=== PATIENT | female | born 1975 | race Caucasian/White ===

== ENCOUNTER → 2021-01-01 12:43 | Outpatient (CLI) | payer OTHER, SELFPAY ==
--- NOTE | ~2021-01-01 | MR_ITS ---
EXAMINATION: MR hip RT w con DATE: 01/01/2021 14:30 INDICATION: Chronic right hip and sacroiliac joint pain. TECHNIQUE: Magnetic resonance (MR) arthrogram of the right hip was performed following intra-articula r gadolinium contrast injection and without intravenous contrast. Details of the hip joint injection have been dictated separately. Sequences included small field of view of the right hip with axial and sagittal T1-weighted FS SE and T2-weighted FS FSE and coronal T1-weighted SE and T2-weighted FS FSE . Additional T1-weighted FGRE images in a radial pattern oriented orthogonal to the acetabular rim we re obtained for evaluation of the labrum. COMPARISON: Right hip MR dated 09/03/2019 FINDINGS: Bones/labrum/cartilage: Again seen is a partially visualized lumbar levocurvature. Moderate lower lumbar spondylosis. Bone is land at the right femoral head. Marrow signal is otherwise normal. No fracture, avascular necrosis o r pathologic marrow replacing process. Chondral labral delamination with linear contrast-filled tear extending partially across the base of the 10:00-11:00 position of the posterior superior right aceta bular labrum. There is partial thickness cartilage loss and fissuring without degenerative subchondra l changes along the anterosuperior glenoid labrum. Less well-defined mild increased labral signal con sistent with degenerative tearing of the adjacent anterosuperior labrum. There is mild subarticular e jazzy at the contralateral anterosuperior left acetabulum suggesting osteoarthritis with similar patte rn of chondromalacia. Bilateral sacroiliac joints are unremarkable. Soft tissues: Normal and symmetric muscle bulk and signal in the pelvis and visualized proximal thighs. The bilater al iliopsoas, gluteal and proximal hamstring tendons are normal. T2 hyperintense bilateral adnexal cy sts, the largest on the left measuring 2.2 cm. Limited evaluation of visceral organs of the pelvis is otherwise unremarkable. No pathologically enlarged pelvic/inguinal lymphadenopathy. Trace amount of likely physiologic free fluid in the pelvis. IMPRESSION: 1. Mild right hip osteoarthritis with chondral labral delamination and partial thickness tear at the posterior superior labrum and more irregular degeneration at the anterosuperior labrum. 2. Lumbar levocurvature with moderate lower lumbar spondylosis. Reviewed, dictated and finalized at location A.
--- NOTE | ~2021-01-01 | XR_ITS ---
EXAMINATION: XR fl inj hip RT for MR/CT DATE: 01/01/2021 13:35 INDICATION: Right hip pain. TECHNIQUE: A time-out was performed to verify the patient's name, date of , and procedure to b e performed. The procedure including the risks, benefits, and alternatives was discussed with the pat ient. Risks discussed included bleeding and infection. The patient understood the risks and agreed to proceed. The skin overlying the right hip joint was prepped and draped in usual sterile fashion. An esthetic was administered with 1% lidocaine subcutaneously. A 22 G needle was advanced under fluoros copic guidance into the joint. Subsequently, injectate consisting of 9 mL of 1:200 Multihance, 1:4 1 % lidocaine, and 1:4 Omnipaque 240 was instilled. The needle was removed and the entry site was gabe nadine and dressed. There were no immediate complications. Fluoroscopy exposure time was 0.0 minutes. T he total number of images was 2. FINDINGS: Real-time fluoroscopy demonstrates the needle and contrast in the right hip joint. IMPRESSION: 1. Successful right hip joint injection of contrast for subsequent MR arthrography. Reviewed, dictated and finalized at location B. IMPRESSION: 1. Successful right hip joint injection of contrast for subsequent MR arthrogra phy.
== END ==
PROVIDERS: Visit Provider Internal Medicine
DX: M53.3 Sacrococcygeal disorders, not elsewhere classified (principal); G89.29 Other chronic pain; M16.11 Unilateral primary osteoarthritis, right hip
CPT/HCPCS: 20610; 73722; 77002; A9577; Q9966

== ENCOUNTER 2021-10-04 16:37 | Emergency (ER) | payer OTHER, SELFPAY ==
[2021-10-04 16:55] VITALS: BP 136/82; PULSE 95; RESP 18; TEMP 37; O2SAT 100
--- NOTE | 2021-10-04 17:24 | ED.FEMALEGU ---
HPI - Female Genitourinary General Chief complaint: Urogenital-Female Stated complaint: POSS UTI Source: patient History of Present Illness HPI Narrative: This is a 46-year-old female who presented to urgent care with complaints of hematuria, urgency frequency, bloating and dysuria. Patient notes that she has a history of urinary tract infection. She notes that if she does not urinate after having sexual intercourse she is prone to have a urinary tract infection. Patient noted that she took ibrd-qsm-[id number] cystex which relieved her symptoms. Patient notes that she did not take her dose of Cystex this morning and all her symptoms returned. Patient UA negative for UA I will treat office symptoms along. Patient denies any STDs Related Data Allergies Allergy/AdvReac Type Severity Reaction Status Date / Time Penicillins Allergy Mild Hives Verified 10/04/21 17:16 sulfamethizole Allergy Mild Hives Verified 10/04/21 17:16 Review of Systems Review of Systems: A 14 organ system Review of Systems was performed and pertinent positives included in the HPI, otherwise remaining ROS is negative. [facility] Family History Family History Father Hypertension Grandparent Family history of cardiovascular disease Family history of lung cancer Family history of malignant neoplasm of urinary bladder Other Family history of malignant neoplasm Social History Social History Smoking status: Former smoker Smoking end date: 09/15/14 Alcohol intake: current Exam Narrative: GENERAL: This is a well-nourished, well-developed patient, in no apparent distress. HEAD: normocephalic, atraumatic. EYES: PERRL. Sclera clear/white. Vision is grossly intact. EARS: External ears normal, auditory canals clear and without drainage, TMs normal without perforation. Hearing grossly intact. NOSE: External nose normal with no obvious nasal discharge, nares without redness, no rhinorrhea. THROAT: Mucous membranes moist, posterior pharynx clear. NECK: Neck supple, non-tender without lymphadenopathy, masses or thyromegaly. CARDIOVASCULAR: Regular rate and rhythm without murmurs, gallops, or rubs. RESPIRATORY: Clear to auscultation. Breath sounds equal bilaterally. No wheezes, rales, or rhonchi. GASTROINTESTINAL: Abdomen soft, non-tender, nondistended. Bowel sounds are active. No hepato-splenomegaly, or palpable masses. No guarding. SKIN: warm, intact with no suspicious lesions or rash, good texture and turgor. NEURO: awake, alert, and oriented to person, place and time. There were no obvious focal neurologic abnormalities. Steady gait EXTREMITIES: Normal range of motion. No edema. No calf tenderness. Negative Homans sign bilaterally. BACK: Nontender without deformity or crepitance. No flank tenderness. Course Course Emergency Course: Patient will be treated for urinary tract infection with Macrobid x5 days based off symptoms and history. Urine culture pending Level of Care: Express Care Visit Vital Signs Vital signs: Vital Signs Temperature 98.6 F 10/04/21 16:55 Pulse Rate 95 10/04/21 16:55 Respiratory Rate 18 10/04/21 16:55 Blood Pressure 136/82 10/04/21 16:55 Pulse Oximetry 100 10/04/21 16:55 Temperature 98.6 F 10/04/21 16:55 Pulse Rate 95 10/04/21 16:55 Respiratory Rate 18 10/04/21 16:55 Blood Pressure 136/82 10/04/21 16:55 Pulse Oximetry 100 10/04/21 16:55 MDM - Female Genitourinary Differential Diagnosis Differential diagnosis: Likely urinary tract infection, bacterial vaginosis and vaginitis Lab Data Labs: Urine Glucose Negative Reference Range: Negative Urine Bilirubin Negative Reference Range: Negative Urine Ketone Negative
== END 2021-10-04 17:30 | disposition home or self-care (01) ==
PROVIDERS: Emergency Provider Nurse Practitioner; PCP Family Medicine
DX: N39.0 Urinary tract infection, site not specified (principal); Z87.891 Personal history of nicotine dependence
CPT/HCPCS: 81003; 87086; 87088; 99213; G0463

== ENCOUNTER 2023-03-28 19:20 | Emergency (ER) | payer OTHER, SELFPAY ==
[2023-03-28 19:36] VITALS: BP 132/84; PULSE 88; RESP 18; TEMP 36.9; O2SAT 100
--- NOTE | 2023-03-28 19:54 | ED.LOWEXIN ---
HPI - Extremity Injury (Lower) General Chief Complaint: Extremity Injury, Lower Stated Complaint: Lt Knee Leg Swelling Due To Fall Time Seen by Provider: 03/28/23 19:39 Source: patient, family (Significant other) and RN notes reviewed Mode of arrival: ambulatory Limitations: no limitations History of Present Illness HPI Narrative: Patient presents today complaining of left knee pain. She fell outside yesterday well taking a walk. She was able to finish her 3 mi walk before going home. She does report some swelling yesterday, but feels today it is difficult to bend her knee. Reports not much pain and currently rates it 09/24. She has been applying ice and taking ibuprofen with some relief. Denies numbness or tingling. She is up-to-date on her tetanus vaccine Related Data Home Medications Medication Instructions Recorded Confirmed levonorgestrel 21 mcg/24 hours (8 See Rx Instructions .Route .COMPLEX 10/04/21 03/28/23 yrs) 52 mg intrauterine device (Mirena) Allergies Allergy/AdvReac Type Severity Reaction Status Date / Time Penicillins Allergy Mild Hives Verified 03/28/23 19:36 sulfamethizole Allergy Mild Hives Verified 03/28/23 19:36 Review of Systems Review of Systems: CONSTITUTIONAL: Denies body aches, fever, chills, or sweats. EYES: Denies visual changes, redness, or discharge. ENT: Denies rhinorrhea, congestion, sore throat, or otalgia. CARDIOVASCULAR: Denies chest pain, palpitations, or edema. RESPIRATORY: Denies cough or dyspnea. GASTROINTESTINAL: Denies abdominal pain, nausea, vomiting, or diarrhea. GENITOURINARY: Denies dysuria or hematuria. SKIN: Denies rash, itching, or wounds. MUSCULOSKELETAL: Denies back pain. + left knee pain NEUROLOGIC: Denies headache, numbness, tingling, or weakness. PSYCH: Denies depression or anxiety. [facility] Family History Family History Father Hypertension Grandparent Family history of cardiovascular disease Family history of lung cancer Family history of malignant neoplasm of urinary bladder Other Family history of malignant neoplasm Social History Social History Smoking status: Former smoker Smoking end date: 09/15/14 Alcohol intake: current Comments At time of signature, I have reviewed and agree with nursing past medical, surgical, social and family history unless otherwise noted. Please see nursing chart for further information. There is no relevant family history pertinent to the presenting complaint Exam Narrative: GENERAL: Well-appearing, well-nourished, and in no acute distress. HEAD: Normocephalic, atraumatic. EYES: EOMI. No redness or drainage. Conjunctivae normal. ENT: Mucous membranes pink and moist. NECK: Normal AROM. CHEST: No respiratory distress. EXTREMITIES: Left knee: Scattered abrasions to the patella. The patella is nontender to palpation. No abnormal movement of the patella. No tenderness to the patellar tendon. No tenderness to the medial or lateral joint lines of the knee. No tenderness posteriorly. No bony tenderness of the lower leg. Patient does have some mild edema of the lower leg, ankle, and foot. Distal sensation intact. Capillary refill normal. Pedal pulse normal. Full range of motion of the knee. No pain with flexion, extension, internal or external rotation. No effusion of the knee palpated. SKIN: Warm, dry, no rash. Capillary refill normal. Normal skin turgor. NEURO: No focal deficits. Alert and oriented x3. Gait steady. PSYCH: Normal affect. No signs of depression or anxiety. Course Course Level of Care: Express Care Visit Vital Signs Vital signs: Vital Signs Temperature 98.4 F 03/28/23 19:36 Pulse Rate 88 03/28/23 19:36 Respiratory Rate 18 03/28/23 19:36 Blood Pressure 132/84 03/28/23 19:36 Pulse Oximetry 100 03/28/23 19:36 Oxygen Delivery
== END 2023-03-28 20:09 | disposition home or self-care (01) ==
PROVIDERS: Emergency Provider Nurse Practitioner; PCP Family Medicine
DX: S80.02XA Contusion of left knee, initial encounter (principal); W19.XXXA Unspecified fall, initial encounter; Z87.891 Personal history of nicotine dependence
CPT/HCPCS: 99212; G0463

== ENCOUNTER 2024-01-06 13:50 | Outpatient (CLI) | payer OTHER, SELFPAY ==
[2024-01-06 18:48] LABS: Basophils Absolute Auto 0.1 K/mm3 (0.0-0.1); Basophils Percent Auto 0.7 % (0.2-1.2); Eosinophils Absolute Auto 0.3 K/mm3 (0-0.3); Eosinophils Percent Auto 2.5 % (0-4.4); Hematocrit 43.6 % (37.0-47.0); Hemoglobin 13.3 g/dL (12.0-15.0); Immature Granulocyte Absolute 0.05 K/mm3 (0.00-0.031); Immature Granulocyte Percent A 0.4 % (0-0.5); Lymphocytes Absolute Auto 2.66 K/mm3 (0.9-3.2); Lymphocytes Percent Auto 20.8 % (18.3-44.2); Mean Corpuscular HGB Conc 30.5 g/dl (32-36); Mean Corpuscular Hemoglobin 31.1 pg (26-34); Mean Corpuscular Volume 101.9 fl (80-100); Mean Platelet Volume 10.8 fl (7.4-10.4); Monocytes Absolute Auto 0.9 K/mm3 (0.1-0.6); Monocytes Percent Auto 7.1 % (2.6-8.5); Neutrophils Absolute Auto 8.7 K/mm3 (1.3-6.7); Neutrophils Percent Auto 68.5 % (45.5-73.1); Nucleated Red Blood Cells Perc 0.5 % (0.0-0.2); Platelet Count Result 211 k/mm3 (150-375); Red Blood Count 4.28 M/mm3 (4.2-5.4); Red Cell Distribution Width 13.5 % (11.5-14.5); White Blood Count 12.8 K/mm3 (4.5-10.0)
[2024-01-06 19:15] LABS: Alanine Aminotransferase 17 U/L (6-35); Alkaline Phosphatase 54 U/L (38-126); Anion Gap 6 mmol/L (4-12); Aspartate Amino Transferase 35 U/L (14-36); Bilirubin,Total 0.7 mg/dL (0.2-1.3); Blood Urea Nitrogen 15 mg/dL (7-17); Calcium 10.3 mg/dL (8.4-10.2); Carbon Dioxide 28 mmol/L (22-30); Chloride 106 mmol/L (98-107); Estimated Glomerular Filt Rate > 60; Glucose 93 mg/dL (65-110); Potassium 4.6 mmol/L (3.4-5.0); Sodium 140 mmol/L (137-145)
[2024-01-06 19:58] LABS: Vitamin D 25 Hydroxy 46.5 ng/mL
[2024-01-07 02:53] LABS: Albumin Level 4.3 g/dL (3.5-5.1)
[2024-01-07 03:25] LABS: Thyroid Stimulating Hormone 0.754 uIU/mL (0.465-4.680)
== END 2024-01-06 13:51 | disposition home or self-care (01) ==
LOC: ANHGOSHLAB 13:51
PROVIDERS: PCP Nurse Practitioner Family; Visit Provider Nurse Practitioner Family
DX: F41.9 Anxiety disorder, unspecified (principal); F32.9 Major depressive disorder, single episode, unspecified; L65.9 Nonscarring hair loss, unspecified; E55.9 Vitamin D deficiency, unspecified; Z00.00 Encounter for general adult medical examination without abnormal findings
CPT/HCPCS: 36415; 80053; 82306; 84443; 85025

== ENCOUNTER 2024-01-06 13:58 | Outpatient (CLI) | payer OTHER, SELFPAY ==
--- NOTE | ~2024-01-06 | XR_ITS ---
XR knee LT 3V 01/06/2024 14:14 Indication: Left knee pain Procedure: 3 views left knee Comparison: No prior studies for comparison. Findings: No fracture, subluxation or dislocation. No significant soft tissue abnormality. No foreign bodies. Impression: 1: No significant bone or joint abnormality. Reviewed, dictated and finalized at location B. Impression: 1: No significant bone or joint abnormality.
== END 2024-01-06 13:59 ==
PROVIDERS: PCP Nurse Practitioner Family; Visit Provider Nurse Practitioner Family
DX: S80.02XA Contusion of left knee, initial encounter (principal); X58.XXXA Exposure to other specified factors, initial encounter
CPT/HCPCS: 73562

== ENCOUNTER 2024-02-17 06:46 | Day surgery (SDC) | payer OTHER, SELFPAY ==
[2023-12-19 07:23] VITALS: BMI 29.0
[2024-01-30 10:06] VITALS: BMI 28.1
[2024-02-17 07:41] VITALS: BP 117/73; PULSE 74; RESP 16; TEMP 37.3; O2SAT 100
[2024-02-17] MEDS: LACTATED RINGERS 1,000 ML 150 ML IV CONT (07:49)
--- NOTE | 2024-02-17 07:54 | PM.HPGS ---
History of Present Illness History of Present Illness Consent: Risks, benefits, and alternatives have been discussed and questions answered. Patient agrees to proceed with procedure. Chief complaint: Screening for neoplasm of colon Narrative: Arina Alvarez is a 48 year old female referred for colon cancer screening. Review of Systems Review of Systems: All systems reviewed & are unremarkable except as noted in HPI and below PMFSH Family History Family History Father Hypertension Grandparent Family history of cardiovascular disease Family history of lung cancer Family history of malignant neoplasm of urinary bladder Other Family history of malignant neoplasm Social History Social History Smoking status: Former smoker Smoking end date: 09/15/14 Alcohol intake: current Substance use: never Substance use type: does not use Living arrangements: alone Spiritual care concerns: No Meds Home Medications and Allergies Home Medications Medication Instructions Recorded Confirmed Type levonorgestrel 21 mcg/24 hr (up to See Rx Instructions .Route .COMPLEX 10/04/21 02/17/24 History 8 years) 52 mg intrauterine device (Mirena) Allergies Allergy/AdvReac Type Severity Reaction Status Date / Time Penicillins Allergy Mild Hives Verified 02/17/24 07:41 sulfamethizole Allergy Mild Hives Verified 02/17/24 07:41 Vital Signs Vital Signs - 24 hr 02/17/24 07:41 Temperature 37.3 C Pulse Rate 74 Respiratory Rate 16 Blood Pressure 117/73 Pulse Oximetry 100 Oxygen Delivery Room Air Exam Resp: Auscultation: clear to auscultation bilaterally Cardio: Rate: regular rate Rhythm: regular rhythm GI: GI Palp: Yes Soft to palpation and No Tenderness to palpation present (GI) Assessment and Plan Assessment and plan (1) Colon cancer screening: Code(s): Z12.11 - Encounter for screening for malignant neoplasm of colon Status: Acute Assessment and Plan: Colonoscopy with possible biopsy or polypectomy or cautery or injection of substances.
--- NOTE | 2024-02-17 08:27 | P.PNAN_ITS ---
Anes - Initial Pre Proc Eval Procedure: Operation Date: 02/17/24 09:00 Proposed Procedures p Screening Colonoscopy - Guille Mondragon MD Date/Time: 02/17/24 08:27 Surgeon: Guille Mondragon MD Pre Op Diagnosis: Screening for neoplasm of colon Patient Data Age: 48 Gender: F Height: 1.7 m Weight: 83.3 kg Last Vital Signs Temp 37.3 C 02/17/24 07:41 Pulse 74 02/17/24 07:41 Resp 16 02/17/24 07:41 BP 117/73 02/17/24 07:41 Pulse Ox 100 02/17/24 07:41 O2 Del Method Room Air 02/17/24 07:41 Allergies Allergy/AdvReac Type Severity Reaction Status Date / Time Penicillins Allergy Mild Hives Verified 02/17/24 07:41 sulfamethizole Allergy Mild Hives Verified 02/17/24 07:41 Home Medications Medication Instructions Recorded Confirmed Type levonorgestrel 21 mcg/24 hr (up to See Rx Instructions .Route .COMPLEX 10/04/21 02/17/24 History 8 years) 52 mg intrauterine device (Mirena) Patient hx anesthesia problems: none Family hx anesthesia problems: post op nausea/vomiting Results Review: All pre-operative results and documents have been reviewed as part of the pre- operative evaluation. [facility] Family History Family History Father Hypertension Grandparent Family history of cardiovascular disease Family history of lung cancer Family history of malignant neoplasm of urinary bladder Other Family history of malignant neoplasm Social History Social History Smoking status: Former smoker Smoking end date: 09/15/14 Alcohol intake: current Substance use: never Substance use type: does not use Living arrangements: alone Spiritual care concerns: No Anes - Eval Final PreProcedure Day of Procedure 02/17/24 08:27 Patient weight: overweight Heart: regular rate and rhythm Lungs: clear to auscultation Airway: Mallampati scale class II Neurological: alert and oriented Last oral intake: >/= 8 hours ASA classification: II Emergent: no Anesthetic plan: proceed Anesthesia type and monitoring: general GIVS and standard monitoring Results Review: All pre-operative results and documents have been reviewed as part of the pre- operative evaluation. Informed Consent: The patient's anesthetic plan and its attendant risks and benefits were discussed with the patient/family/POA. Questions were solicited and answers provided to the satisfaction of the patient/family/POA.
[2024-02-17 09:17] VITALS: BP 86/47; PULSE 79; RESP 15; O2SAT 100
[2024-02-17 09:27] VITALS: BP 108/64; PULSE 65; RESP 16; O2SAT 100
[2024-02-17 09:37] VITALS: BP 104/70; PULSE 71; RESP 16; O2SAT 100
--- NOTE | 2024-02-17 09:37 | WPDANESPN ---
Anes - Prog Note Post-Op Date/Time: 02/17/24 09:37 Cardiovascular status: normal Respiratory status: normal Airway patency: baseline Mental status: baseline Post-Op hydration status: normal Vital Signs: Last Vital Signs Temp 37.3 C 02/17/24 07:41 Pulse 65 02/17/24 09:27 Resp 16 02/17/24 09:27 BP 108/64 02/17/24 09:27 Pulse Ox 100 02/17/24 09:27 O2 Del Method Room Air 02/17/24 09:27 Pain Score (VAS): 0 I/O: Intake & Output 02/16/24 02/17/24 02/17/24 23:59 07:59 15:59 Intake Total 900 Balance 900 Patient Feedback: Patient satisfied with anesthetic care.
== END 2024-02-17 09:46 | disposition home or self-care (01) ==
PROVIDERS: PCP Nurse Practitioner Family; Visit Provider Internal Medicine Gastroenterology
PROC: 0DJD8ZZ Inspection of Lower Intestinal Tract, Via Natural or Artificial Opening Endoscopic (ICD-10-PCS; CPT 45378; principal; 2024-02-17 09:00)
DX: Z12.11 Encounter for screening for malignant neoplasm of colon (principal)
CPT/HCPCS: 45378

== ENCOUNTER 2025-07-02 13:41 | Emergency (ER) | payer OTHER, SELFPAY ==
--- OUTSIDE RECORDS SUMMARY | 2024-02-28 16:30 | XMS_ITS ---
Author Organization [facility] [place] ([address]) Address [address] [place] [address] Care Team Providers Care As400 Developer Name Role Phone London Rush M.D. Primary Care Provider Anai vailable Astrid Abdul Unavailable [phone] ZZ-Migration, Provider Unavailable Unavailab le Allergies Allergen (clinical drug ingredient) Drug/Non Drug Allergy documented on EMR Reaction Allergy Type Onset Date Status Sulfamethoxazole rash Drug Allergy Active Penicillin rash Drug Allergy [facility] Encounter Medications Medication SIG (Take, Route, Frequency, Duration) Notes Start Date End Date Status Triamcinolone Acetonide 0.1 % 1 tavia applied topically 3 times a day; Duration: 7 day(s) 05/01/2020 Active Encounters Encounter Location Date Provider Diagnosis [address] [address] 02/28/2024 Provider ZZ-Migration Rash and other nonspecific [...] * Saji ALVAREZB:[birth year] 75 (50 yo F)Acc No.[id number]:02/28/2024 Patient: Arina FULTON Provider: Judi Phelps :1975 A ge:48 Y S ex:Female Date:02/28/2024 Address:[address], [id number] Pcp:London Rush M.D. Subjective: * Chief Complaints: * 1 . Multum To [facility] Conversion Encounter. * Medical History: * Allergies: P enicillin: rash, Sulfamethoxazole: rash. Objective: * Vitals: Assessment: * Assessment: 1. R isela and other nonspecific skin eruption - R21 (Primary) Plan: * Treatment: * Billing Information: * Visit Code: * Procedure Codes: * Electronic signature of Prov ider ZZ-Migration on 07/02/2025 at 01:47 PM CDT Sign off status: Pending * Provider: Judi Phelps Date: 0 02/28/2024 Generated for Aster wheeler/Amadou/Evonnesmitting on: 1 01:47 PM CDT
--- OUTSIDE RECORDS SUMMARY | 2025-07-02 13:47 | XMS_ITS | Clinical Summary ---
Author Organization [facility] Address [address] [place] [address] Care Team Providers Care Customer Engineer Name Role Phone London Rush MD Primary Care Provider [phone] Allergies Active Allergy Reactions Criticality Noted Date Comments Penicillins Sulfa (Sulfonamide Antibiotics) Rash Medium 05/16 Medications clobetasoL (TEMOVATE) 0.05 % ointment 01/10/2021 Active Active Problems No known active problems Surgical History Surgery Date Site/Laterality Comments OVARIAN CYST REMOVAL Medical History Medical History Date Comments Hx Other Medical 2013 ovarian cyst re moved Family History Medical History Relation Name Comments Heart disease Other 1 Family history of Heart disease; Hyperlipidemia Other 2 Family histor y of Hyperlipidemia; Cancer Other 3 Other Other 3 Family history of Arhtritis; Relation Name Status Comments Other 1 Other 2 Other 3 Social History Tobacco Use Types Packs/Day Years Used Date Smoking Tobacco: Former Smokeless Tobacco: Former Quit: 2017 Alcohol Use Standard Drinks/Week Comments Yes 0 (1 standard drink = 0.6 oz pur e alcohol) Comments Unknown Sex and Gender Information Value Date Recorded Sex Assigned at Not on file Legal Sex Female 3:05 AM INTEGRITY MANAGER Gender Identity Not on file Sexual Orientation Not on file 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 Not on file Not on file Not on fi le Obstetrics History Last Filed Vital Signs Vital Sign Reading Time Taken Comments Blood Pressure 114/77 01/19/2021 11:17 AM CDT Pulse 65 01/19/2021 11:17 AM CDT Temperature 36.6 C (97.9 F) 12/13/2020 2:39 PM CDT Respiratory Rate - - Oxygen Saturation - - Inhaled Oxygen Concentration - - Weight 81.7 kg (180 lb 3.2 oz) 01/19/2021 11:17 AM CDT Height 170.2 cm (5' 7) 01/19/2021 11:17 AM CDT Body Mass Index 28.22 01/19/2021 11:17 AM CDT Plan of Treatment Not on file Insurance [id number] [place] [id number] Care Teams Customer Engineer Relationship Specialty Start Date End Date London Rush MD PCP - General 08/18/13
--- OUTSIDE RECORDS SUMMARY | 2025-07-02 13:47 | XMS_ITS ---
Author Organization Unknown ENCOUNTERS Encounter Performer Location Date Diagnosis Diagnosis Status Outpatient [id number] *Note: Encounters from your own facility or health system may be excluded. Allergies, Adverse Reactions, Alerts Allergen Type Severity Identification Date sulfamethizole drug allergy 2 20231217 Penicillins drug allergy 2 20231217 Medications Name Date Quantity Days Supplied GPI Number
--- OUTSIDE RECORDS SUMMARY | 2025-07-02 13:48 | XMS_ITS | Clinical Summary ---
Author Organization [facility] Address [facility] [place] [address] Care Team Providers Care Hand Outside Cutter Name Role Phone London Rush MD Primary Care Provider [phone] Encounters Date Type Department Care Team Description 06/30/2025 7:30 AM CDT - 06/30/2025 11:59 PM CDT Hospital Encounter [facility] [address], [place] [address] [place], [place] Arrived Discharge Disposition: Home or Self Care (Routine Discharge) 06/30/2025 Travel from Last 3 Months Social History Tobacco Use Types Packs/Day Years Used Date Smoking Tobacco: Never Assessed Comments Unknown Sex and Gender Information Value Date Recorded Sex Assigned at Female 06/30/2025 7:26 AM CDT Legal Sex Female 8:40 PM CDT Gender Identity Not on file Sexual Orientation Not on file Last Filed Vital Signs Vital Sign Reading Time Taken Comments Blood Pressure 120/78 05/01/2013 9:42 AM CDT Pulse 110 05/01/2013 9:42 AM CDT Temperature - - Respiratory Rate - - Oxygen Saturation - - Inhaled Oxygen Concentration - - Weight 96.2 kg (212 lb) 05/01/2013 9:42 AM CDT Height 170.2 cm (5' 7) 05/01/2013 9:42 AM CDT Body Mass Index 33.2 05/01/2013 9:42 AM CDT Plan of Treatment Health Maintenance Due Date Last Done Comments Cervical Cancer Screening Pa p Smear (Age 30 to 64) Every 3 Years 1975 Colorectal Cancer Screening Colonoscopy (10 Years) 1975 Annual Physical 1978 Hepatitis C 1993 Cervical Cancer Screening Pa p with HPV Testing (Age 30 to 64) Every 5 Years 2005 Cervical Cancer Screening wi th HPV 2005 Mammogram Screening 02/06/2025 02/06/2023 Pneumococcal Vaccine: 50+ Years (1 of 1 - PCV) 2025 Zoster Vaccines (1 of 2) 2025 COVID-19 Vaccine (3 - 2024-2 6 season) 2025 01/04/2021, 12/11/2020 Influenza Adult (#1) 2025 DTaP, Tdap and Td Vaccines ( 3 - Td or Tdap) 05/21/2032 05/21/2022, 05/27/2012, 09/15/1998 Hepatitis B Vaccines Completed 02/01/1997, 09/02/1996, 08/03/1996 Hepatitis A Vaccines Aged Out No long er eligible based on patient's age to complete this topic Meningococcal B Vaccine Aged Out No l onger eligible based on patient's age to complete this topic Meningococcal Vaccine Aged Out No norbert monique eligible based on patient's age to complete this topic RSV Immunizations Under 20 Months Aged Out No longer eligible b ased on patient's age to complete this topic Procedures Procedure Name Priority Date/Time Associated Diagnosis Comments XR KNEE LT MIN 4V Routine 06/30/2025 7:4 9 AM CDT Left knee pain MG SCREENING W ELA YANA DIGI Routine 02/06/2023 7:17 AM CDT Encounter for screening mammogram for malignant neoplasm of breast from Last 3 Months or Most Recently Relevant to Health Maintenance Results * XR KNEE LT MIN 4V (06/30/2025 7:49 AM CDT) Anatomical Region Laterality Modality Knee Radiographic Astrid ging 06/30/2025 8:29 AM CDT Impressions 06/30/2025 12:27 PM CDT IMPRESSION: 1. No significant acute radiographic abnormality. The attending radiologist has reviewed the image(s) and agrees with the content of this report. Ordered By: GENE HUGHES Interpreted By: Jose Miller MD, 06/30/2025 8:29 AM Narrative 06/30/2025 12:27 PM CDT [address] [address] XR KNEE LT MIN 4V: 06/30/2025 7:41 AM CLINICAL INDICATION: Chronic left knee pain COMPARISON: None TECHNIQUE: 4 views of the left knee FINDINGS: No fracture or dislocation is identified. There is mild tricompartment joint space narrowing. Tiny marginal osteophytes in the patellofemoral and lateral compartments. There is no soft tissue swelling or joint effusion. The tibial plateau is intact. Procedure Note Jude Burgess MD - 06/30/2025 [facility] [address] [place] [id number] XR KNEE LT MIN 4V: 06/30/2025 7:41 AM CLINICAL INDICATION: Chronic left knee pain COMPARISON: None TECHNIQUE: 4 views of the left knee FINDINGS: No fracture or dislocation is identified. There is mild tricompartmentjoint space narrowing. Tiny marginal osteophytes in the patellofemoral andlateral compartments. There is no soft tissue swelling or joint effusion.The tibial plateau is intact. IMPRESSION: 1. No significant acute radiographic abnormality. The attending radiologist has reviewed the image(s) and agrees with thecontent of this report. Ordered By: GENE HUGHES Interpreted By: Jose Miller MD, 06/30/2025 8:29 AM [place] [facility] Final Result * MG SCREENING W ELA YANA DIGI (02/06/2023 7:17 AM CDT) Anatomical Region Laterality Modality Breast Bilateral Mammography 02/06/2023 7:24 AM CDT Narrative 02/06/2023 7:25 AM CDT Examination: Digital screening mammogram with CAD. Clinical history: Asymptomatic patient presents for routine screening. Comparison: 03/19/2018. Technique: Bilateral digital mammograms. The exam was interpreted with the use of a computer-aided detection (CAD) system. Additional 3-D tomosynthesis images were acquired. Tissue density: The breast tissue contains scattered fibroglandular densities. Findings: The breast tissue contains scattered fibroglandular densities. No suspicious mass, microcalcification or area of architectural distortion can be identified. From a mammographic standpoint, routine followup in one year would seem adequate. IMPRESSION: No suspicious change since the previous exams. Recommendation: 1: Routine Screening Bilateral in 1 Year Assessment: ACR BI-RADS 1 - NEGATIVE Ordered By: JAMI BARAHONA Interpreted By: Fam Puentes MD, 02/06/2023 7:24 AM us Jami Barahona DO MAMMO Final Resul t from Last 3 Months or Most Recently Relevant to Health Maintenance [place] [address] [address] [facility] Care Teams Hand Outside Cutter Relationship Specialty Start Date End Date London Rush MD [facility] [address] [place] [id number] PCP - General FAMILY PRACTICE 12/11/22
--- OUTSIDE RECORDS SUMMARY | 2025-07-02 13:48 | XMS_ITS | Patient Health Record ---
Author Organization [facility] [place] ([address]) Address [address] [place] [address] Care Team Providers Care Tablet Machine Operator Name Role Phone London Rush M.D. Primary Care Provider Anai bryceilable Astrid Abdul Unavailable [phone] Allergies Allergen (clinical drug ingredient) Drug/Non Drug Allergy documented on EMR Reaction Allergy Type Onset Date Status Sulfamethoxazole rash Drug Allergy Active Penicillin rash Drug Allergy Active Reason For Referral No Information Medications Medication SIG (Take, Route, Frequency, Duration) Notes Start Date End Date Status TRIAMCINOLONE TOPICAL 0.1% 1 tavia applied topically 3 times a day; Duration: 7 day(s) 05/01/2020 Active Triamcinolone Acetonide 0.1 % 1 tavia applied topically 3 times a day; Duration: 7 day(s) 05/01/2020 Active Immunizations Vaccine Route Administration Date Status Comme nts Hepatitis B (20 and more) Unknown 02/01/1997 Administer ed Portal Information NOC Tdap Unknown 05/27/2012 Administered Portal Infor mation Social History Tobacco Use: Social History Observation Description Date Details (start date - stop date) Former Smoker NA - NA Smoking Smart Form: Question Answer Notes Are you a: former smoker How long it has been since you last smoked? 1-5 years Problems Problem Type SNOMED Code ICD Code Onset Dates Problem Status W/U Status Risk Notes Problem Prurigo nodularis (40276871) Prurigo nodularis (L28.1) Active confirmed Problem Eruption of skin (036243185) Rash and other nonspecific skin eruption (R21) Active confirmed Plan Of Treatment No Information Insurance Providers Payer Name Payer Address Payer Phone Subscriber Number Group Number Insured Name Patient Relationship to Insured Coverage Start Date Coverage End Date [facility] [address] [place] [address] [id number] Arina Alvarez Self - patient is the insured Medical (General) History Medical History History ICD Code Dyshidrotic eczema Surgical History Surgery Date(Month/Year) ovarian cyst removal 06/15/2013 Hospitalization History Reason Date(Month/Year) SOB - suspected lung blood clot 04/15/20 14
[2025-07-02 13:50] VITALS: BP 122/71; PULSE 82; RESP 18; TEMP 36.7; O2SAT 99
--- NOTE | 2025-07-02 13:53 | ED.SKABFB ---
HPI - Skin/Abscess/Foreign Bdy General Chief complaint: Skin/Abscess/Foreign Body Stated complaint: LT Leg Injury Source: patient Mode of arrival: ambulatory Limitations: no limitations History of Present Illness HPI narrative: This is a 50 y/o female patient that presents with c/o a insect bite to her left colon region that she has scratched and now is red and inflammed. patient states she noticed it one week ago. the area was healing but last night she was scratching at the area, she noticed this am it was red and tender. no discharge or abcess. patient states she was concerned with possible infection. she denies any fever, chills, or muscle aches. complaint: insect bite/sting Onset (ago): week(s) (1) Tetanus up to date: yes Location: LLE Severity: mild Severity scale (1-10): 1 Quality: dull Pain Consistency: constant Relieving factors: none Exacerbating factors: other (itching) Context: witnessed insect bite Associated symptoms: itching Treatments prior to arrival: none Related Data Home Medications ?Medication ?Instructions ?Recorded ?Confirmed ?Last Taken ?Type levonorgestrel (Mirena) See Rx Instructions .Route .COMPLEX 10/04/21 07/02/25 Unknown History Allergies Allergy/AdvReac Type Severity Reaction Status Date / Time Penicillins Allergy Mild Hives Verified 07/02/25 13:43 sulfamethizole Allergy Mild Hives Verified 07/02/25 13:43 Review of Systems Review of Systems: All systems reviewed & are unremarkable except as noted in HPI and below PMFSH Family History Family History Father Hypertension Grandparent Family history of cardiovascular disease Family history of lung cancer Family history of malignant neoplasm of urinary bladder Mother Melanoma of skin Other Family history of malignant neoplasm Social History Social History Smoking status: Former smoker Smoking end date: 09/15/14 Alcohol intake: current Substance use: never Substance use type: does not use Living arrangements: alone Spiritual care concerns: No Exam Const: General: healthy appearing, no acute distress and alert Nutritional Appearance: well nourished Orientation/consciousness: patient oriented x3 Limitations: no limitations HENMT: Head: normal to inspection Face and sinus: normal facial exam Mouth: Yes Normal oral and palatal mucosa present Eyes: Conjunctivae: conjunctivae normal Pupils: Equal, round and reactive pupils present EOM: EOMs intact bilaterally Neck: Neck: normal visual inspection Chest: Chest palpation & inspection: normal inspection of the chest Resp: Effort & Inspection: normal respiratory effort Auscultation: clear to auscultation bilaterally Cardio: Rate: regular rate Rhythm: regular rhythm GI: Auscultation: normal bowel sounds Skin: General skin exam: normal color Rashes: no rashes Other: 1 inch area to the left mid colon region with a small scabbed puncture site to the center, obvious excoriation noted to the area. no edema or ecchymosis. Neuro: General: patient oriented x3, moves all extremities, no focal motor deficits and CN's II-XI intact bilaterally Speech: normal speech Gait exam (Neuro): Normal gait present Extrem: General: normal to inspection, no clubbing, cyanosis or edema and no pedal edema Psych: Mental Status: mental status grossly normal Affect: normal affect Attitude: cooperative Course Course Emergency Course: This is a 50 y/o female patient that presents with c/o a insect bite to her left colon region that she has scratched and now is red and inflammed. patient states she noticed it one week ago. the area was healing but last night she was scratching at the area, she noticed this am it was red and tender. no discharge or abcess. patient states she was concerned with possible infection. she denies any fever, chills, or muscle aches. vital signs stable. Discussed with patient exam findings, treatment, and management. discussed with patient antibiotic management vs over the counter management, and follow up with pcp. answered all questions to satisfaction agreeable to plan. educated patient to increase fluids, rest. continue tylenol and ibuprofen for discomfort. use benadryl ointment and triple antibiotic ointment to the area to help with itching. continue with antibiotic twice daily until completed, follow up with your primary on Friday as scheduled. return to the Urgent care or ER for any worrisome sign or symptom. patient verbalized no further needs or concerns to be addressed prior to discharge. Level of Care: Express Care Visit Vital Signs Vital signs: Vital Signs Temperature 98.0 F 07/02/25 13:50 Pulse Rate 82 07/02/25 13:50 Respiratory Rate 18 07/02/25 13:50 Blood Pressure 122/71 07/02/25 13:50 Pulse Oximetry 99 07/02/25 13:50 Oxygen Delivery Room Air 07/02/25 13:50 Temperature 98.0 F 07/02/25 13:50 Pulse Rate 82 07/02/25 13:50 Respiratory Rate 18 07/02/25 13:50 Blood Pressure 122/71 07/02/25 13:50 Pulse Oximetry 99 07/02/25 13:50 Oxygen Delivery Room Air 07/02/25 13:50 Discharge Plan Discharge Clinical Impression: Insect bite, Cellulitis Patient Disposition: Home Condition: Stable Instructions: Antibiotic Form Additional Instructions: increase fluids, rest. continue tylenol and ibuprofen for discomfort use benadryl ointment and triple antibiotic ointment to the area to help with itching. continue with antibiotic twice daily until completed, follow up with your primary on Friday as scheduled. return to the Urgent care or ER for any worrisome sign or symptom Patient Language: Surinamese Prescriptions: New clindamycin HCl [Cleocin HCl] 300 mg capsule 300 mg PO BID Qty: 14 0RF No Action Mirena 20 mcg/24 hours (7 yrs) 52 mg Intrauterine Device See Rx Instructions .ROUTE .COMPLEX Rx Instructions: replace IUD in 7 years Follow-up/Referrals: Cherie Barrera BROADCAST OPERATIONS ENGINEER-C [Primary Care Provider, Family Practice] Time of Disposition: 14:08 Quality NIHSS Nursing Documentation ED NIHSS nursing documentation: reviewed/agree
== END 2025-07-02 14:10 | disposition home or self-care (01) ==
PROVIDERS: Emergency Provider Nurse Practitioner Family; PCP Nurse Practitioner Family
DX: S80.862A Insect bite (nonvenomous), left lower leg, initial encounter (principal); W57.XXXA Bitten or stung by nonvenomous insect and other nonvenomous arthropods, initial encounter; L03.116 Cellulitis of left lower limb; Z87.891 Personal history of nicotine dependence
CPT/HCPCS: 99213; G0463

== ENCOUNTER 2025-07-26 08:39 | Outpatient (CLI) | payer OTHER, SELFPAY ==
--- OUTSIDE RECORDS SUMMARY | 2024-02-28 15:30 | XMS_ITS ---
Author Organization [facility] [place] ([address]) Address [address] [place] [address] Care Team Providers Care Beauty Operator Name Role Phone London Rush M.D. Primary Care Provider Anai vailable Astrid Abdul Unavailable [phone] ZZ-Migration, Provider Unavailable Unavailab le Allergies Allergen (clinical drug ingredient) Drug/Non Drug Allergy documented on EMR Reaction Allergy Type Onset Date Status Sulfamethoxazole rash Drug Allergy Active Penicillin rash Drug Allergy [facility] Conversion Encounter Medications Medication SIG (Take, Route, Frequency, Duration) Notes Start Date End Date Status Triamcinolone Acetonide 0.1 % 1 tavia applied topically 3 times a day; Duration: 7 day(s) 05/01/2020 Active Encounters Encounter Location Date Provider Diagnosis [address] [address] 02/28/2024 Provider ZZ-Migration Rash and other nonspecific skin eruption R21 Assessments Encounter Date Diagnosis (ICD Code) Assessment Notes Treatment Notes Treatment Clinical Notes Section Notes 02/28/2024 Rash and other nonspecific skin eruption (ICD-10 - R21) Plan Of Treatment Medication Medication Name Sig Start Date Stop Date Notes Triamcinolone Acetonide 0.1 % 1 tavia appl ied topically 3 times a day; Duration: 7 day(s) 05/01/2020 Progress Notes * Saji ALVAREZB:[birth year] (50 yo F)Acc No.[id number]:02/28/2024 Patient: Arina FULTON Provider: Judi Phelps :1975 A ge:48 Y S ex:Female Date:02/28/2024 Address:[address], [id number] Pcp:London Rush M.D. Subjective: * Chief Complaints: * 1 . Multum To [facility] Conversion Encounter. * Medical History: * Allergies: P enicillin: rash, Sulfamethoxazole: rash. Objective: * Vitals: Assessment: * Assessment: 1. R isela and other nonspecific skin eruption - R21 (Primary) Plan: * Treatment: * Billing Information: * Visit Code: * Procedure Codes: * Electronic signature of Prov jackr ZZ-Migration on 07/26/2025 at 08:53 AM PEOPLESOFT HRMS DEVELOPER Sign off status: Pending * Provider: Judi Phelps Date: 0 02/28/2024 Generated for Aster wheeler/Amadou/Evonnesmitting on: 1 09/25/2024 08:53 AM PEOPLESOFT HRMS DEVELOPER
--- NOTE | ~2025-07-26 | US_ITS ---
EXAM/PROCEDURE: US arterial ankle brachial ind HISTORY: R20.0 - Anesthesia of skin COMPARISON: None available. TECHNIQUE: LETICIA study performed FINDINGS: Right and left brachial pressure readings are 129 and 113 Right and left posterior tibial pressure readings are 157 and 152 Right and left dorsalis pedis pressure readings are 128 and 123 Right and left great toe pressure readings are 88 and 134 Right and left ABIs are 1.22 and 1.18 Right and left TBIs are 0.68 and 1.04 Plethysmography appears within normal limits. IMPRESSION: Both ABIs greater than 1.0. Mild to moderately diminished right TBI of 0.68 Reviewed, dictated and finalized at location A. ER MACHINE OPERATOR
--- OUTSIDE RECORDS SUMMARY | 2025-07-26 08:54 | XMS_ITS | Patient Health Record ---
Author Organization [facility] [place] ([address]) Address [address] [place] [address] Care Team Providers Care Clamp Operator Name Role Phone London Ruhs M.D. Primary Care Provider Anai bryceilable Astrid Abdul Unavailable [phone] Allergies Allergen (clinical drug ingredient) Drug/Non Drug [...] W/U Status Risk Notes Problem Prurigo nodularis (42448396) Prurigo nodularis (L28.1) Active confirmed Problem Eruption of skin (797722932) Rash and other nonspecific skin eruption (R21) Active confirmed Plan Of Treatment No Information Insurance Providers Payer Name Payer Address Payer Phone Subscriber Number Group Number Insured Name Patient Relationship to Insured Coverage Start Date Coverage End Date [employer] [address] [place] [address] [id number] Arina Alvarez Self - patient is the insured Medical (General) History Medical History History ICD Code Dyshidrotic eczema Surgical History Surgery Date(Month/Year) ovarian cyst removal 06/15/2013 Hospitalization History Reason Date(Month/Year) SOB - suspected lung blood clot 04/15/20 14
== END 2025-07-26 08:40 | disposition home or self-care (01) ==
PROVIDERS: PCP Nurse Practitioner Family; Visit Provider Nurse Practitioner Family
DX: R20.0 Anesthesia of skin (principal); R22.43 Localized swelling, mass and lump, lower limb, bilateral
CPT/HCPCS: 93922